=== PATIENT | female | born 2005 | race African-American/Black ===

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

== ENCOUNTER 2023-03-12 13:32 | Outpatient (CLI) | payer OTHER, SELFPAY ==
[2023-03-12 14:30] LABS: Basophils Absolute Auto 0.1 K/mm3 (0.0-0.1); Basophils Percent Auto 0.7 % (0.2-1.2); Eosinophils Absolute Auto 0.2 K/mm3 (0-0.3); Hemoglobin 14.4 g/dL (12.0-15.0); Immature Granulocyte Absolute 0.05 K/mm3 (0.00-0.031); Immature Granulocyte Percent A 0.5 % (0-0.5); Lymphocytes Absolute Auto 2.71 K/mm3 (0.9-3.2); Lymphocytes Percent Auto 27.9 % (18.3-44.2); Mean Corpuscular HGB Conc 34.3 g/dl (32-36); Mean Corpuscular Hemoglobin 31.3 pg (26-34); Mean Corpuscular Volume 91.3 fl (80-100); Monocytes Absolute Auto 0.7 K/mm3 (0.1-0.6); Monocytes Percent Auto 7.1 % (2.6-8.5); Neutrophils Percent Auto 61.8 % (45.5-73.1); Platelet Count Result 311 k/mm3 (150-375); Red Cell Distribution Width 12.6 % (11.5-14.5); White Blood Count 9.7 K/mm3 (4.5-10.0)
[2023-03-12 14:33] LABS: Rheumatoid Factor < 12.0 IU/ML (<12)
[2023-03-12 15:08] LABS: Erythrocyte Sedimentation Rate 9 mm/hr (0-20)
[2023-03-12 15:18] LABS: Iron 154 ug/dL (37-170)
[2023-03-12 15:29] LABS: Percent Iron Saturation 42 % (20-50)
[2023-03-12 15:43] LABS: Folic Acid 5.4 ng/mL (2.76->20)
[2023-03-12 15:47] LABS: Vitamin D 25 Hydroxy 40.8 ng/mL
[2023-03-12 16:20] LABS: Alanine Aminotransferase 25 U/L (6-35); Albumin Level 4.9 g/dL (3.7-5.6); Alkaline Phosphatase 67 U/L (45-116); Anion Gap 12 mmol/L (8-16); Aspartate Amino Transferase 26 U/L (14-36); Blood Urea Nitrogen 12 mg/dL (8-21); Calcium 9.4 mg/dL (8.9-10.7); Carbon Dioxide 22 mmol/L (22-30); Chloride 106 mmol/L (98-107); Estimated Glomerular Filt Rate > 60; Glucose 95 mg/dL (65-110); Potassium 4.2 mmol/L (3.4-5.0); Sodium 140 mmol/L (134-143)
== END 2023-03-12 13:33 | disposition home or self-care (01) ==
PROVIDERS: PCP Pediatrics Pediatric Rheumatology
DX: E55.9 Vitamin D deficiency, unspecified (principal); R53.83 Other fatigue; M25.50 Pain in unspecified joint
CPT/HCPCS: 36415; 80053; 82306; 82607; 82746; 83540; 83550; 84443; 85025; 85652; 86038; 86430

== ENCOUNTER 2023-10-06 11:27 | Outpatient (CLI) | payer OTHER, SELFPAY ==
[2023-10-06 12:28] LABS: Basophils Absolute Auto 0.1 K/mm3 (0.0-0.1); Basophils Percent Auto 0.8 % (0.2-1.2); Eosinophils Absolute Auto 0.4 K/mm3 (0-0.3); Eosinophils Percent Auto 4.5 % (0-4.4); Hematocrit 40.4 % (37.0-47.0); Hemoglobin 13.7 g/dL (12.0-15.0); Immature Granulocyte Absolute 0.03 K/mm3 (0.00-0.031); Immature Granulocyte Percent A 0.3 % (0-0.5); Lymphocytes Absolute Auto 2.79 K/mm3 (0.9-3.2); Mean Corpuscular HGB Conc 33.9 g/dl (32-36); Mean Corpuscular Hemoglobin 31.1 pg (26-34); Mean Corpuscular Volume 91.8 fl (80-100); Monocytes Absolute Auto 0.7 K/mm3 (0.1-0.6); Monocytes Percent Auto 7.4 % (2.6-8.5); Neutrophils Absolute Auto 4.8 K/mm3 (1.3-6.7); Platelet Count Result 310 k/mm3 (150-375); Red Cell Distribution Width 12.8 % (11.5-14.5); White Blood Count 8.7 K/mm3 (4.5-10.0)
[2023-10-06 12:38] LABS: Alanine Aminotransferase 27 U/L (6-35); Albumin Level 4.8 g/dL (3.7-5.6); Alkaline Phosphatase 68 U/L (45-116); Anion Gap 6 mmol/L (8-16); Aspartate Amino Transferase 25 U/L (14-36); Bilirubin,Total 0.9 mg/dL (0.2-1.3); Blood Urea Nitrogen 20 mg/dL (8-21); Calcium 9.5 mg/dL (8.9-10.7); Carbon Dioxide 26 mmol/L (22-30); Chloride 106 mmol/L (98-107); Estimated Glomerular Filt Rate > 60; Glucose 97 mg/dL (65-110); Sodium 138 mmol/L (134-143)
[2023-10-06 12:39] LABS: Partial Thromboplastin Time 30.6 SECONDS (22.3-36.8)
== END 2023-10-06 11:28 | disposition home or self-care (01) ==
PROVIDERS: PCP Pediatrics Pediatric Rheumatology
DX: R04.0 Epistaxis (principal)
CPT/HCPCS: 36415; 80053; 85025; 85730

== ENCOUNTER 2025-01-31 15:48 | Emergency (ER) | payer OTHER, SELFPAY ==
--- NOTE | 2025-01-31 15:52 | ED_ITS ---
HPI - Ear Problem General Chief complaint: Ear Stated complaint: ringing in right ear Time Seen by Provider: 01/31/25 16:01 Source: patient and RN notes reviewed Mode of arrival: ambulatory Limitations: no limitations History of Present Illness HPI Narrative: 19-year-old female presents concern for ringing in the right ear. Reports it has been intermittent, sometimes will last an hour time. Reports it is curren tly not ringing. Reports it was rainy earlier today and she took Flonase and an antihistamine. She denies fever, drainage from the ear. Reports mild cold symptoms MD Complaint: ear pain Related Data Home Medications ?Medication ?Instructions ?Recorded ?Confirmed ?Last Taken ?Type medroxyprogesterone 150 mg/mL mg IM 01/31/25 Unknown History intramuscular syringe Allergies Allergy/AdvReac Type Severity Reaction Status Date / Time No Known Allergies Allergy Verified 01/31/25 16:01 Review of Systems Review of Systems: CONSTITUTIONAL: Denies malaise, chills, sweats, or fever. EYES: Denies visual changes, redness, or discharge. ENT: Reports mild rhinorrhea, congestion. Denies ear pain, sinus pain, and sore throat. Reports ringing in the right ear CARDIOVASCULAR: Denies chest pain, palpitations, or edema. RESPIRATORY: Denies cough. Denies dyspnea. GASTROINTESTINAL: Denies abdominal pain, nausea, vomiting, diarrhea SKIN: Denies rash or itching. MUSCULOSKELETAL: Denies myalgia. NEUROLOGIC: Denies headache. All systems reviewed & are unremarkable except as noted in HPI and below PMFSH Comments At time of signature, agree with nursing past medical, surgical, social and family history. There is no relevant family history pertinent to the presenting complaint Exam Narrative: GENERAL: Well-appearing, well-nourished, and in no acute distress. HEAD: Normocephalic EYES: PERRLA, conjunctivae clear ENT: Nares clear. Mucous membranes moist. TM pearly hendrix with sharp light reflex on the left, not visible on the right not visible on the right due to excess cerumen; no tragal tenderness. Oropharynx not erythematous without lesions. Tonsils not enlarged and without exudate, no drooling, no hoarseness, no trismus, uvula midline. NECK: Supple. No lymphadenopathy CHEST: Clear to auscultation, breath sounds equal. No wheezing, rhonchi, rales, or stridor. No respiratory distress, speaks in full sentences. HEART: Regular rate and rhythm. No murmur heard. SKIN: Warm, dry, no rash. NEURO: Alert and oriented x3. PSYCH: Normal mood and affect Course Course Emergency Course: Patient is aware of diagnosis, understands and agrees to treatment plan. Anticipatory guidance given. Patient agrees to follow-up as directed and is aware of reasons to seek care at the emergency department. Portions of this record may have been created with voice recognition software Level of Care: Express Care Visit Vital Signs Vital signs: Reviewed. Procedures Ear Wax Removal Right Ear: Ear Wax Removal Date: 01/31/25 Ear Wax Removal Time: 16:11 Cerumenolytic Used: other (My strep proximal) Results: Re-examined: cerumen removed completely TM Examination: TM(s) intact, normal appearance Ear Canal Exam: atraumatic Patient Tolerated Procedure: well Technique: ear canal irrigated and ear canal curetted Medical Decision Making MDM Narrative Medical decision making narrative: I evaluated this in the [facility] care. History is obtained from patient who is an independent historian and physical exam was performed.? Available medical records were reviewed. ? Exam findings and relevant testing show no acute concerns or changes; patient is non-toxic appearing and is in no distress. Differential diagnosis considered: Jackson virus, strep pharyngitis, allergic rhinitis, upper respiratory tract infection, sinusitis, rhinosinusitis, nasopharyngitis. viral pharyngitis, otitis media, otitis externa, otitis effusion, cerumen impaction, foreign body. Exam findings show no acute concerns or changes; patient is non-toxic appearing and is in no distress. Patient is appropriate for outpatient treatment and follow-up. ? Differential diagnosis and treatment plan were discussed with the patient. Patient agrees with discussion and after shared medical decision making agrees with plan of care. All questions were answered to the patient's satisfaction. Patient is appropriate for outpatient treatment and follow-up. Critical Care Time Critical Care Time Critical Care Time: No Discharge Plan Discharge Clinical Impression: Cerumen impaction Qualifiers: Laterality: right Qualified Code(s): H61.21 - Impacted cerumen, right ear Patient Disposition: Home Condition: Stable Additional Instructions: Ear wax impaction is when ear wax builds up enough to cause symptoms. Normally, ear wax helps to protect the insides of the ears and prevents injury or infection. But having too much ear wax can cause symptoms such as pain and trouble hearing. The medical term for ear wax is cerumen. The insides of the ears do not usually need to be cleaned. Sticking anything into the ears can push the wax in deeper and cause impaction. How is ear wax impaction treated? There are several treatments to remove impacted ear wax. Treatment is usually only needed if the impaction is causing bothersome symptoms. Treatment is not recommended for removing ear wax in people who have no symptoms, even if their ears are impacted. There are several different ways to remove ear wax: ?Ear drops - Special ear drops can soften ear wax and help it to drain out. Ear drops are not usually safe for people with an ear infection or damage to the eardrum. ?Rinsing - In some cases, a doctor or nurse can remove impacted ear wax by squirting water (or a special liquid) into the ear to rinse it out. ?Special tools - A doctor or nurse might use a special tool to remove ear wax. There are different types of tools that can do this safely. These include small sticks, hooks, and spoons. There are also tools that use suction to pull the wax out. If you have recurrent cerumen impaction and no significant ear disease, you can use hydrogen peroxide to soften the wax so it comes out on its own. Do not put any tools on q-tips into your ears. Please use any drops that may have been prescribed to you. Follow up with your doctor if you have any new symptoms or concerns. Patient Language: Italian Follow-up/Referrals: UNKNOWN,DOCTOR [Non-Staff] - Time of Disposition: 16:37
[2025-01-31 15:58] VITALS: BP 149/73; PULSE 114; RESP 16; TEMP 36.4; O2SAT 98
== END 2025-01-31 16:41 | disposition home or self-care (01) ==
PROVIDERS: Emergency Provider Nurse Practitioner
DX: H61.21 Impacted cerumen, right ear (principal)
CPT/HCPCS: 69210; 99212; G0463

== ENCOUNTER 2025-02-01 10:21 | Emergency (ER) | payer OTHER, SELFPAY ==
[2025-02-01 10:25] VITALS: BP 150/70; PULSE 108; RESP 12; TEMP 36.6
--- NOTE | 2025-02-01 10:25 | ED.EAR ---
HPI - Ear Problem General Chief complaint: Ear Stated complaint: right ear ringing Time Seen by Provider: 02/01/25 10:31 Source: patient, RN notes reviewed and old records reviewed Mode of arrival: ambulatory Limitations: no limitations History of Present Illness HPI Narrative: 19-year-old female presents to the [facility] with complaints of ringing in her ear. Patient reports has been going on 3 days. Was seen yesterday and had had wax cleaned out of her ears. Patient states that she had no ringing for couple of hours after she left. States she had some pain last night. Ringing has been intermittent. States that she has taken 2 doses of Zyrtec and last 3 days. Denies any pain currently. Denies any other symptoms. Related Data Home Medications ?Medication ?Instructions ?Recorded ?Confirmed ?Last Taken ?Type medroxyprogesterone 150 mg/mL mg IM 01/31/25 Unknown History intramuscular syringe Allergies Allergy/AdvReac Type Severity Reaction Status Date / Time No Known Allergies Allergy Verified 02/01/25 10:23 Review of Systems Review of Systems: All systems reviewed & are unremarkable except as noted in HPI and below Constitutional: Constitutional: Reports no additional constitutional complaints ENT: Reports as per HPI Cardiovascular: Cardiovascular: Reports no additional cardiovascular complaints, Denies chest pain and Denies dyspnea Respiratory: Respiratory: Reports no additional respiratory complaints, Denies chest congestion, Denies cough and Denies dyspnea Musculoskeletal: Musculoskeletal: Reports no additional musculoskeletal complaints Integumentary/Breasts: Skin/Breast: Reports system reviewed and no additional complaints, except as docu PMFSH Comments At the time of my signature, I reviewed and agree with the nursing past medical, surgical, social, and family history. There is no relevant family history pertinent to the patient complaint. Exam Const: General: cooperative, healthy appearing, comfortable, no acute distress, well developed, alert and well nourished Nutritional Appearance: well nourished Orientation/consciousness: patient oriented x3 Limitations: no limitations HENMT: Head: normal to inspection Ears: hearing grossly normal bilaterally, external ears normal, EAC's normal, mastoids normal, no periauricular adenopathy and TM abnormal with fluid behind the TM bilateral; not bulging, not with effusion, not erythematous and with no loss of landmarks Mouth: Yes Normal oral and palatal mucosa present, Yes lip normal, Yes tongue normal and Yes moist mucous membranes Throat: posterior oropharynx normal, tonsils normal, uvula midline and no uvular edema Eyes: General: appearance normal, both eyes and all related structures Alignment and Position: alignment normal Neck: Neck: normal visual inspection, full ROM, no lymphadenopathy and no meningeal signs Chest: Chest palpation & inspection: normal inspection of the chest Resp: Effort & Inspection: normal respiratory effort and able to speak in complete sentences Auscultation: clear to auscultation bilaterally, no crackles, no rales, no rhonchi and no wheezes Cardio: Rate: regular rate Skin: General skin exam: normal color and no rashes or lesions noted Neuro: General: patient oriented x3, gait normal, moves all extremities and no meningeal signs Cognition (Neuro): normal cognition Speech: normal speech Gait exam (Neuro): Normal gait present Extrem: General: normal to inspection, full ROM, capillary refill normal and normal gait Psych: Appearance: grossly normal and well kempt Mental Status: mental status grossly normal Speech and movement: Normal speech and movement present and Clear speech present Affect: normal affect Attitude: cooperative Course Course Level of Care: Express Care Visit Vital Signs Vital signs: Vital Signs Temperature 97.8 F 02/01/25 10:25 Pulse Rate 108 H 02/01/25 10:25 Respiratory Rate 12 02/01/25 10:25 Blood Pressure 150/70 H 02/01/25 10:25 Temperature 97.8 F 02/01/25 10:25 Pulse Rate 108 H 02/01/25 10:25 Respiratory Rate 12 02/01/25 10:25 Blood Pressure 150/70 H 02/01/25 10:25 Reviewed Medical Decision Making MDM Narrative Medical decision making narrative: Patient sitting comfortably in exam room. Nontoxic, vitals stable. Patient in no acute distress Patient returns to the Urgent Care with intermittent ringing in her right ear. No neurologic deficits noted. No abnormality to the TM. No cerumen noted to the ear canal Patient appropriate for outpatient treatment with close follow-up Discharge instructions reviewed with patient, as well as provided in writing per nursing staff. The instructions also include specific and strict return/GO TO THE ER as well as f/u information. All questions have been answered, and the patient deny any further questions with discharge and discharge plan. Some parts of this dictation were generated by voice recognition software and may contain typographical and/or grammatical inaccuracies. Differential Diagnosis Differential Diagnosis: Tinnitus, otitis media, otitis externa, serous otitis. Medical Records Medical records reviewed: Yes I reviewed the external patient's medical records. Vital Signs Vital Signs: Vital Signs Temperature 97.8 F 02/01/25 10:25 Pulse Rate 108 H 02/01/25 10:25 Respiratory Rate 12 02/01/25 10:25 Blood Pressure 150/70 H 02/01/25 10:25 Temperature 97.8 F 02/01/25 10:25 Pulse Rate 108 H 02/01/25 10:25 Respiratory Rate 12 02/01/25 10:25 Blood Pressure 150/70 H 02/01/25 10:25 Reviewed Lab Data Lab results reviewed: Yes I reviewed the patient's lab results. Labs: Reviewed Critical Care Time Critical Care Time Critical Care Time: No Discharge Plan Discharge Clinical Impression: Tinnitus Patient Disposition: Home Condition: Stable Instructions: Antibiotic Form, Tinnitus (ED) Additional Instructions: Use Flonase twice a day for 5 days. Use Zyrtec every day. Follow-up with ENT Follow-up with primary care provider Patient Language: Ghanaian Prescriptions: No Action medroxyprogesterone 150 mg/mL syringe IM Follow-up/Referrals: PHYSICIAN,DIELECTRIC TESTING MACHINE OPERATOR [Primary Care Provider] - Time of Disposition: 10:39
== END 2025-02-01 10:41 | disposition home or self-care (01) ==
PROVIDERS: Emergency Provider Nurse Practitioner
DX: H93.11 Tinnitus, right ear (principal)
CPT/HCPCS: 99211; G0463

== ENCOUNTER 2025-02-03 09:32 | Outpatient (CLI) | payer OTHER, SELFPAY ==
[2025-02-03 10:13] LABS: Basophils Absolute Auto 0.1 K/mm3 (0.0-0.1); Basophils Percent Auto 0.9 % (0.2-1.2); Eosinophils Absolute Auto 0.3 K/mm3 (0-0.3); Eosinophils Percent Auto 2.5 % (0-4.4); Hematocrit 42.5 % (37.0-47.0); Hemoglobin 14.2 g/dL (12.0-15.0); Immature Granulocyte Absolute 0.05 K/mm3 (0.00-0.031); Immature Granulocyte Percent A 0.5 % (0-0.5); Lymphocytes Absolute Auto 3.34 K/mm3 (0.9-3.2); Lymphocytes Percent Auto 30.6 % (18.3-44.2); Mean Corpuscular HGB Conc 33.4 g/dl (32-36); Mean Corpuscular Hemoglobin 30.1 pg (26-34); Mean Corpuscular Volume 90.2 fl (80-100); Mean Platelet Volume 9.5 fl (7.4-10.4); Monocytes Absolute Auto 0.8 K/mm3 (0.1-0.6); Monocytes Percent Auto 7.6 % (2.6-8.5); Neutrophils Absolute Auto 6.3 K/mm3 (1.3-6.7); Neutrophils Percent Auto 57.9 % (45.5-73.1); Platelet Count Result 358 k/mm3 (150-375); Red Blood Count 4.71 M/mm3 (4.2-5.4); Red Cell Distribution Width 13.2 % (11.5-14.5); White Blood Count 10.9 K/mm3 (4.5-10.0)
[2025-02-03 10:25] LABS: Alanine Aminotransferase 25 U/L (6-35); Albumin Level 4.6 g/dL (3.5-5.1); Alkaline Phosphatase 68 U/L (38-126); Anion Gap 9 mmol/L (4-12); Aspartate Amino Transferase 29 U/L (14-36); Bilirubin,Total 0.5 mg/dL (0.2-1.3); Blood Urea Nitrogen 13 mg/dL (7-17); Calcium 9.6 mg/dL (8.4-10.2); Carbon Dioxide 24 mmol/L (22-30); Chloride 105 mmol/L (98-107); Estimated Glomerular Filt Rate > 60; Glucose 105 mg/dL (65-110); Potassium 4.3 mmol/L (3.4-5.0); Sodium 138 mmol/L (137-145); Total Protein 7.9 g/dL (6.3-8.2)
[2025-02-03 10:30] LABS: Iron 86 ug/dL (37-170)
--- OUTSIDE RECORDS SUMMARY | 2025-02-03 10:31 | XMS_ITS | Patient Health Record ---
Author Organization [facility] [employer] [facility] Address [address] [place] [address] Care Team Providers [employer] Name Role Phone Harish Cooley Unavailable [phone] Allergies No Known Allergies Reason For Referral No Information Medications Medication SIG (Take, Route, Frequency, Duration) Notes Start Date End Date Status Ergocalciferol 1.25 MG (5000 0 UT) Oral 01/02/2024 Active medroxyPROGESTERone Acetate 150 MG/ML Intramuscular 01/02/2024 Active buPROPion HCl ER (XL) 150 MG 1 tablet in the morning Orally Once a day for 30 day(s) 02/02/2025 Active Multivitamin Adults Oral 01/02/2024 Active Social History Tobacco Use: Social History Observation Description Date Details (start date - stop date) Never Smoker NA - NA Sex Assigned At : Social History Observation Description Sex Assigned At Female Tobacco Control (Standard) Question Answer Notes Tobacco use: Nonsmoker Problems Problem Type SNOMED Code ICD Code Onset Dates Problem Status W/U Status Risk Notes Problem Moderate recurrent major depression (10598814) Major depressive disorder, recurrent, moderate (F33.1) Active confirmed Problem Generalized anxiety disorder (04583719) Generalized anxiety disorder (F41.1) 4 Active confirmed Problem 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 Active confirmed Problem Panic disorder (547348848) Panic disorder [episodic paroxysmal anxiety] without agoraphobia (F41.0) 4 Active confirmed Vital Signs Heart Rate 102 /min 02/02/2025 Height-cm 162.56 cm 02/02/2025 Blood pressure diastolic 80 mm Hg 02/02/2025 Weight-kg 107.05 kg 02/02/2025 Height 64.00 in 02/02/2025 Blood pressure systolic 120 mm Hg 02/02/2025 Weight 236 lbs 02/02/2025 BMI 40.5 kg/m2 02/02/2025 Encounters Encounter Location Date Provider Diagnosis [address] [address] 02/02/2025 Harish Cooley Encounter for screen ing for depression Z13.31 ; Encounter for screening for cardiovascular disorders Z13.6 ; Insomnia due to other mental disorder F51.05 ; Panic disorder [episodic paroxysmal anxiety] without agoraphobia F41.0 ; Generalized anxiety disorder F41.1 ; Other fatigue R53.83 and Major depressive disorder, recurrent, moderate F33.[address] [address] 03/21/2024 Harish Cooley Insomnia due to othe r mental disorder F51.05 ; Panic disorder [episodic paroxysmal anxiety] without agoraphobia F41.0 ; Generalized anxiety disorder F41.1 and Other fatigue R53.[address] [address] 10/27/2024 Harish Cooley Encounter for screen ing for depression Z13.31 ; Encounter for screening for cardiovascular disorders Z13.6 ; Insomnia due to other mental disorder F51.05 ; Panic disorder [episodic paroxysmal anxiety] without agoraphobia F41.0 ; Generalized anxiety disorder F41.1 and Other fatigue R53.[address] [address] 03/03/2024 Harish Cooley [address] [address] 09/02/2024 Harish Cooley [address] [address] 10/30/2024 Harish Cooley Assessments Encounter Date Diagnosis (ICD Code) Assessment Notes Treatment Notes Treatment Clinical Notes Section Notes 03/21/2024 Insomnia due to other mental disorder (ICD-10 - F51.05) trazodone 50mg tablet- 0.5 to 1 tablet at bedtime prn 1. Anxiety - Patient reports significant improvement in anxiety symptoms since starting Sertraline 50 mg daily. - No reported side effects from Sertraline. Plan: - Continue Sertraline 50 mg daily. Monitor for any changes in anxiety symptoms or side effects. 2. Insomnia - Patient reports not needing Trazodone 50 mg for insomnia and has been sleeping regularly throughout the summer. Plan: - Continue to have Trazodone 50 mg available as needed for insomnia. Monitor sleep patterns and adjust treatment if necessary. 3. Post-operative care (wisdom teeth extraction) - Patient recently had all four wisdom teeth extracted, with three of them being impacted. Plan: - Encourage proper oral hygiene and follow post-operative care instructions provided by the oral surgeon. Monitor for any signs of infection or complications. 4. Follow-up - Plan: Schedule a follow-up appointment in approximately four months to assess anxiety levels and overall well-being after returning to school. - Refill Sertraline 50 mg prescription and send to [facility] in [place] as requested by the patient. 10/27/2024 Encounter for screening for depression (ICD-10 - Z13.31) 02/02/2025 Encounter for screening for cardiovascular disorders (ICD-10 - Z13.6) 02/02/2025 Encounter for screening for depression (ICD-10 - Z13.31) 10/27/2024 Encounter for screening for cardiovascular disorders (ICD-10 - Z13.6) 02/02/2025 Insomnia due to other mental disorder (ICD-10 - F51.05) 03/21/2024 Panic disorder [episodic paroxysmal anxiety] without agoraphobia (ICD-10 - F41.0) 1. Anxiety - Patient reports significant improvement in anxiety symptoms since starting Sertraline 50 mg daily. - No reported side effects from Sertraline. Plan: - Continue Sertraline 50 mg daily. Monitor for any changes in anxiety symptoms or side effects. 2. Insomnia - Patient reports not needing Trazodone 50 mg for insomnia and has been sleeping regularly throughout the summer. Plan: - Continue to have Trazodone 50 mg available as needed for insomnia. Monitor sleep patterns and adjust treatment if necessary. 3. Post-operative care (wisdom teeth extraction) - Patient recently had all four wisdom teeth extracted, with three of them being impacted. Plan: - Encourage proper oral hygiene and follow post-operative care instructions provided by the oral surgeon. Monitor for any signs of infection or complications. 4. Follow-up - Plan: Schedule a follow-up appointment in approximately four months to assess anxiety levels and overall well-being after returning to school. - Refill Sertraline 50 mg prescription and send to [facility] in [place] as requested by the patient. 10/27/2024 Insomnia due to other mental disorder (ICD-10 - F51.05) 02/02/2025 Panic disorder [episodic paroxysmal anxiety] without agoraphobia (ICD-10 - F41.0) 03/21/2024 Generalized anxiety disorder (ICD-10 - F41.1) 1. Anxiety - Patient reports significant improvement in anxiety symptoms since starting Sertraline 50 mg daily. - No reported side effects from Sertraline. Plan: - Continue Sertraline 50 mg daily. Monitor for any changes in anxiety symptoms or side effects. 2. Insomnia - Patient reports not needing Trazodone 50 mg for insomnia and has been sleeping regularly throughout the summer. Plan: - Continue to have Trazodone 50 mg available as needed for insomnia. Monitor sleep patterns and adjust treatment if necessary. 3. Post-operative care (wisdom teeth extraction) - Patient recently had all four wisdom teeth extracted, with three of them being impacted. Plan: - Encourage proper oral hygiene and follow post-operative care instructions provided by the oral surgeon. Monitor for any signs of infection or complications. 4. Follow-up - Plan: Schedule a follow-up appointment in approximately four months to assess anxiety levels and overall well-being after returning to school. - Refill Sertraline 50 mg prescription and send to [facility] in [place] as requested by the patient. 02/02/2025 Generalized anxiety disorder (ICD-10 - F41.1) 10/27/2024 Panic disorder [episodic paroxysmal anxiety] without agoraphobia (ICD-10 - F41.0) 03/21/2024 Other fatigue (ICD-10 - R53.83) 1. Anxiety - Patient reports significant improvement in anxiety symptoms since starting Sertraline 50 mg daily. - No reported side effects from Sertraline. Plan: - Continue Sertraline 50 mg daily. Monitor for any changes in anxiety symptoms or side effects. 2. Insomnia - Patient reports not needing Trazodone 50 mg for insomnia and has been sleeping regularly throughout the summer. Plan: - Continue to have Trazodone 50 mg available as needed for insomnia. Monitor sleep patterns and adjust treatment if necessary. 3. Post-operative care (wisdom teeth extraction) - Patient recently had all four wisdom teeth extracted, with three of them being impacted. Plan: - Encourage proper oral hygiene and follow post-operative care instructions provided by the oral surgeon. Monitor for any signs of infection or complications. 4. Follow-up - Plan: Schedule a follow-up appointment in approximately four months to assess anxiety levels and overall well-being after returning to school. - Refill Sertraline 50 mg prescription and send to [facility] in [place] as requested by the patient. 10/27/2024 Generalized anxiety disorder (ICD-10 - F41.1) 02/02/2025 Other fatigue (ICD-10 - R53.83) 02/02/2025 Major depressive disorder, recurrent, moderate (ICD-10 - F33.1) 10/27/2024 Other fatigue (ICD-10 - R53.83) 10/27/2024 Other 1. Generalized Anxiety Disorder: - Patient reports her anxiety is pretty bad and has been inconsistent with taking sertraline 50 mg daily, sometimes taking it 3-5 days per week. - Patient expresses a desire to discontinue medication completely, citing difficulty with consistent adherence and a preference for holistic methods. - Patient's motivation for various activities, including medical appointments, is reported as low. - Sleep, previously an issue, has improved to the point where the patient reports sleeping too much now. Plan: - Discontinue sertraline 50 mg daily - Discontinue trazodone as sleep has improved - Encourage patient to discuss holistic anxiety management techniques with her therapist, including mindfulness, cognitive restructuring, and breathing exercises - Advise against naturalistic supplements due to patient's difficulty with medication adherence - Recommend resuming regular therapy sessions 2. Follow-up: - Schedule a follow-up appointment in 2 months to reassess anxiety symptoms and effectiveness of holistic methods Plan Of Treatment Future Test Test Name Order Date IRON, TIBC AND FERRITIN PANEL (7791) TSH+FREE T4 (39308) 02/02/2025 COMPREHENSIVE METABOLIC PANEL (74410) CBC (H/H, RBC, INDICES, WBC, PLT) (1759) 02/02/2025 HEMOGLOBIN A1c (496) 02/02/2025 VITAMIN B12/FOLATE, SERUM PANEL (7065) 0 02/02/2025 T3, FREE (99808) 02/02/2025 Next Appt Details Provider Name:Harish lau, 03/02/2025 09:15:00 AM, [address], [facility] [address], [place], [address], Insurance Providers Payer Name Payer Address Payer Phone Subscriber Number Group Number Insured Name Patient Relationship to Insured Coverage Start Date Coverage End Date [facility] [address] [place] [address] [id number] LOREE BOURNE Self - patient is the insured [facility] [place] Medicaid Replacement - Hmo [address] [place] [address] [id number] LOREE BOURNE Self - patient is the insured Medical (General) History Medical History History ICD Code Problems: Fatigue Generalized anxiety disorder 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
--- OUTSIDE RECORDS SUMMARY | 2025-02-03 10:31 | XMS_ITS | Clinical Summary ---
Author Organization [facility] Address [address] [place] [address] Care Team Providers Care Bakery Manager Name Role Phone Dilshad Nassar MD Primary Care Provider [phone] Dilshad Nassar MD Unavailable [phone] Source Comments [facility],non-owned Affiliates and Associated Physician Practices is amultiple site organization consisting of ambulatory clinics and hospital sitesin [place], [place], [place] and [place]. This disclosure is being madepursuant to the Care Everywhere program and may not contain all information available regarding this patient. Last updated 18.[facility] Allergies Active Allergy Reactions Criticality Noted Date Comments [place] Fruit Itching Medium 07/12/2020 C/o itchy throat Medications * This document contains information received from the source organization and may not represent a complete record from that organization. * Be aware that medications may not be up to date on this document. Alwaysverify current medications with the patient. ibuprofen (MOTRIN) 400 MG tablet Take 200 mg by mouth every 6 hours as needed for Pain Active cetirizine (ZYRTEC) 10 MG tablet Take 1 (one) tablet by mouth once daily Active medroxyPROGESTE Dontae Acetate (DEPO-PROVERA IM) Active naproxen (NAPROSYN) 500 MG tablet Take 1 (one) tablet by mouth 2 times daily 60 tablet 3 06/30/2021 Active ferrous sulfate 325 (65 FE) MG tablet Take 1 (one) tablet by mouth once daily 100 tablet 08/01/2021 Active ergocalciferol (Drisdol) 1.25 MG (99962 UT) capsule Take 1 (one) capsule by mouth every 14 days 6 capsule 1 08/16/2022 Active Active Problems Problem Noted Date Diagnosed Date Arthralgia 07/20/2020 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 Uses pads, and occasionally bleeds through, has missed school this year due to periods Labs: - CBC, Ferritin - Vitamin D - FSH, LH, Testosterone, DHEA Urine Hcg Depo-provera today Dysmenorrhea 07/12/2020 Assessment & Plan (05/29/2022 3:31 PM CDT): Loree Bourne is an 16 year old with a history of dysmenorrhea who presents to the adolescent clinic for follow up of her menorrhagia and for her next Depo injection. She has been doing well on Depo. She had 4 days of spotting in March associated with cramping, but not as bad as her cramps were before she started Depo. Plan: -Depo-Provera injection today. -Return to clinic in 12 weeks (~August 20) for next injection. Assessment & Plan (10/10/2021 5:32 PM HEEL TOP LIFT SPLITTER): Loree Bourne is a 15 yr old w/ hx of dysmenorrhea who presents to the adolescent clinic for follow up of her menorrhagia, and for a depo injection. She had intermittent for 2 days last month but the depo has still overall been controlling her painful periods and heavy bleeding. [facility] is significant for mother and grandmother with endometriosis and hx of clots so she will need to be on a progesterone only contraceptive option.She has been taking vitamin D 50k weekly dose and iron supplementation daily.Her weight today is up by 12 lbs, she does not seem too surprised as she says that she typically gains weight in the winter and is usually much more physically active in the summer. She denies sexual activity, but will test for STIs to be sure with hx of irregular spotting. Plan: - depo today - GC, chlamydia, tichomonas testing - return in 10 weeks around December 26 for next depo Assessment & Plan (12/06/2020 5:12 PM CDT): Loree Bourne is a 15 yr old w/ hx of dysmenorrhea who presents to the adolescent clinic for depo shot. She had prolonged bleeding for 2 weeks last month but the depo has still overall been controlling her painful periods and heavy bleeding. [facility] is significant for mother and grandmother with endometriosis and hx of clots so she will need to be on a progesterone only contraceptive option. Discussed other options if she is interested in the future including IUD and mini-pill. She has been taking vitamin D but has not been taking the 50k weekly dose. She denies sexual activity, but will test for STIs to be sure with hx of irregular bleeding. Plan: - depo today - GC, chlamydia testing - refilled vitamin D 50k Q7 days - return in 12 weeks around February 28 for next depo Assessment & Plan (07/12/2020 4:58 PM HEEL TOP LIFT SPLITTER): Pain with periods, lower back and pelvic. Has pain starting two weeks before period, pain is the worst on days 1-3. Uses ibuprofen 800 mg four times daily on period. - Start depo today - Plan to start Vit D and iron pending labs results - check CBC, ferritin, vitamin D Family history of gynecological problem 07/12/20 Assessment & Plan (07/12/2020 5:00 PM HEEL TOP LIFT SPLITTER): Mother, multiple aunts (both maternal and paternal sides), grandmother with heavy menstrual bleeding, dysmenorrhea, and hysterectomies. PCOS in mother. Mother with history of three blood clots (2 out of 3 on estrogen or after surgery, genetic work-up for mother did not reveal cause) - Factor V Leiden panel - Start on Depo today - Avoid estrogen; can consider low dose estrogen in the future pending lab results Immunizations Immunization Administration Dates Next Due Human Papilloma Virus Ninevalent Vaccine 017,07/11/2016,05/01/2015 Human Papilloma Virus Quadrivalent Vaccine 03/17 INFLUENZA VACCINE, QUADR. (F LUZONE; FLULAVAL; FLUARIX; AFLURIA QUADRIVALENT; 6MO+), 0.5 ML (IIV4) 06/12/2020,08/08/2018,07/11/2016 MENINGOCOCCAL ACWY (MCV4P) VAC IM 12/20/2020,,03/17/2014 TDAP (7yrs+) 05/01/2015 VARICELLA 03/17/2014 Family History Medical History Relation Name Comments Diabetes; unknown type Father Other - Tree Climber Maternal Grandmother Diabetes; unknown type Mother Other - Tree Climber Mother PCOS/ endometri osis/ hysterectomy. Blood clots on high dose estrogen Other - Psychiatric Mother bipolar Thyroid Disease Mother tumors and r emval Other - Tree Climber Other Aunts on both s ides with PCOS/ACCESS LEAD Relation Name Status Comments Father Maternal Grandmother Mother Other Social History Tobacco Use Types Packs/Day Years Used Date Smoking Tobacco: Never Smokeless Tobacco: Never Tobacco Cessation:Counseling Given: Not Answered Alcohol Use Standard Drinks/Week Comments Never 0 (1 standard drink = 0.6 oz pur e alcohol) AUDIT-C Answer Date Recorded Q1: How often do you have a drink containing alc ohol? Never 07/12/2020 Average Number of Drinks Not on file 020 Frequency of Binge Drinking Not on file 06/21 Comments No Sex and Gender Information Value Date Recorded Sex Assigned at Not on file Legal Sex Female 11:57 AM HEEL TOP LIFT SPLITTER Gender Identity Not on file Sexual Orientation Not on file Last Filed Vital Signs Vital Sign Reading Time Taken Comments Blood Pressure 130/58 08/16/2022 4:06 PM HEEL TOP LIFT SPLITTER Pulse 124 08/16/2022 4:06 PM HEEL TOP LIFT SPLITTER Temperature 36.2 C (97.2 F) 07/19/2020 2:50 PM HEEL TOP LIFT SPLITTER Respiratory Rate 20 06/06/2021 4:10 PM CDT Oxygen Saturation - - Inhaled Oxygen Concentration - - Weight 83.4 kg (183 lb 13.8 oz) 08/16/2022 4:06 PM HEEL TOP LIFT SPLITTER Height 164.5 cm (5' 4.76) 08/16/2022 4:06 PM CS T Body Mass Index 30.82 08/16/2022 4:06 PM HEEL TOP LIFT SPLITTER Plan of Treatment Health Maintenance Due Date Last Done Comments PAP SMEAR 2003 MENINGOCOCCAL (Group B) VACCINE SHARED DECISION-MAKING (1 of 2 - Standard) 2019 HEPATITIS C SCREENING 10/20/2021 CHLAMYDIA/GONORRHEA SCREENING 10/10/2022 10/10/2021, 02/28/2021, 12/06/2020, Additional history exists HEPATITIS B VACCINE (1 of 3 - 19+ 3-dose series) 10/24/2022 COVID-19 VACCINE (4 - season) 2024 08/17/2021, 12/23/2020, 12/02/2020 DEPRESSION SCREENING 08/20/2024 INFLUENZA VACCINE (Season Ended) 2025 08/17/2021, 06/12/2020, 08/08/2018, Additional history exists DTAP/TDAP/TD VACCINES (2 - Td or Tdap) 05/01/2025 05/01/2015 ZOSTER VACCINE (1 of 2) 10/24/2053 HPV VACCINE Completed 02/05/2017, 06/21, 05/01/2015, Additional history exists MENINGOCOCCAL GROUPS A/C/Y/W VACCINE Completed 12/20/2020, 03/13/2018, 03/17/2014 HIV SCREENING Completed 05/16/2021 HIB VACCINE Aged Out No longer eligi ble based on patient's age to complete this topic PNEUMOCOCCAL VACCINE Aged Out No long er eligible based on patient's age to complete this topic Procedures Procedure Name Priority Date/Time Associated Diagnosis Comments CHLAMYDIA + GC AMPLIFIED PROBE Routine 10/10/2021 5:02 PM HEEL TOP LIFT SPLITTER Menorrhagia with irregular cycle HIV-1 HIV-2 ANTIBODY + HIV P24 AG PANEL Routine 05/16/2021 3:58 PM CDT Routine screening for STI (sexually transmitted infection) from Last 3 Months or Most Recently Relevant to Health Maintenance Results * CHLAMYDIA + GC AMPLIFIED PROBE (STL) (10/10/2021 5:02 PM HEEL TOP LIFT SPLITTER) Chlamydia Amplified Probe Negative Negative 10/11/2021 11:55 PM HEEL TOP LIFT SPLITTER [facility] GC Amplified Probe Negative Negative 10/11/2021 11:55 PM HEEL TOP LIFT SPLITTER [facility] Microbiology URINE / Unknown Collection / Unknown 10/10/2021 5:02 PM HEEL TOP LIFT SPLITTER 10/10/2021 5:02 PM HEEL TOP LIFT SPLITTER Narrative [facility] - 10/11/2021 11:55 PM HEEL TOP LIFT SPLITTER Results based on detection/no detection of ribosomal RNA by amplified method. Marla Mayers MD LAB - MICROBIOLOGY ORDER ANN-MARIE Final Result Performing Organization Address City/[facility]/ZIP Co de Phone Number [facility] [address] [place] [address], [facility] [phone] * HIV-1 HIV-2 ANTIBODY + HIV P24 AG PANEL (05/16/2021 3:58 PM CDT) HIV Antigen/Antibod y 1 & 2 Non-reacti ve Non-react juan antonio 05/16/2021 6:14 PM CDT [facility] Comment:Neither HIV-1 p24 An tigen nor HIV-1/HIV-2 Antibodies are detected. Blood BLOOD SPECIMEN / Unknown Lab Venipuncture / Unknown 05/16/2021 3:58 PM CDT 05/16/2021 4:21 PM CDT Marla Mayers MD LAB - CHEMISTRY ORDERABL ES Final Result Performing Organization Address City/[facility]/ZIP Co de Phone Number [facility] [address] [place] [address], [place] [phone] from Last 3 Months or Most Recently Relevant to Health Maintenance Insurance [facility] Care Teams Bakery Manager Relationship Specialty Start Date End Date Dilshad Nassar MD [address] [place] [address] PCP - General 07/13/20 Dilshad Nassar MD [address] [place] [address] Family Medicine 07/13/20
--- OUTSIDE RECORDS SUMMARY | 2025-02-03 10:32 | XMS_ITS ---
Author Organization [facility] Address [address] [facility] [address] [place] [address] Care Team Providers Care Heel Top Lift Splitter Name Role Phone Cooley, Harish Unavailable [phone] REASON FOR VISIT r/s on 09/24/24 Social History Sex Assigned At : Social History Observation Description Sex Assigned At Female Encounters Encounter Location Date Provider Diagnosis [facility] [employer] [facility] [address] [facility] [address] [place] [address] 09/26/2024 Harish Cooley Plan Of Treatment Next Appt Details Provider Name:Harish lau, 03/02/2025 09:15:00 AM, [address], [facility] [address], [place], [address], Progress Notes * LOREE BOURNE RDOB:2005 (19 yo F)Acc No.[id number]:09/26/2024 Patient: Rachelle PRADIP LOREE Acuna Provider: SERENITY CARDENAS :2005 A ge:18 Y S ex:Female Date:09/26/2024 Address:[address] [place], [place] [id number] Subjective: * Chief Complaints: * 1 . R/s on 09/24/24. * Medical History: Objective: * Vitals: Assessment: Plan: * Treatment: * Billing Information: * Visit Code: * Procedure Codes: * Electronic signature of SERENITY Castillo on 02/03/2025 at 10:31 AM CDT Sign off status: Pending * Provider: SERENITY CARDENAS Date: 0 09/26/2024 Generated for Will Rubio/Tomasz on: 0 02/03/2025 10:31 AM CDT
--- OUTSIDE RECORDS SUMMARY | 2025-02-03 10:32 | XMS_ITS ---
Author Organization [facility] [employer] Address [address] [place] [address] Care Team Providers Care Hand Engraver Name Role Phone Harish Cooley Unavailable [phone] Allergies No Known Allergies REASON FOR VISIT Follow Up Medications Medication SIG (Take, Route, Frequency, Duration) [...] Risk Notes Problem Moderate recurrent major depression (50652011) Major depressive disorder, recurrent, moderate (F33.1) Active confirmed Vital Signs Blood pressure systolic 120 mm Hg 02/03/20 25 Blood pressure diastolic 80 mm Hg 025 Heart Rate 102 /min 02/02/2025 Height 64.00 in 02/02/2025 Weight 236 lbs 02/02/2025 BMI 40.5 kg/m2 02/02/2025 Height-cm 162.56 cm 02/02/2025 Weight-kg 107.05 kg 02/02/2025 Encounters Encounter Location Date Provider Diagnosis [facility] [employer] [facility] [address] [place] [address] 02/02/2025 Harish Cooley Encounter for screen ing for depression Z13.31 ; Encounter for screening for cardiovascular disorders Z13.6 ; Insomnia due to other mental disorder F51.05 ; Panic disorder [episodic paroxysmal anxiety] without agoraphobia F41.0 ; Generalized anxiety disorder F41.1 ; Other fatigue R53.83 and Major depressive disorder, recurrent, moderate F33.1 Assessments Encounter Date Diagnosis (ICD Code) Assessment Notes Treatment Notes Treatment Clinical Notes Section Notes 02/02/2025 Encounter for screening for depression (ICD-10 - Z13.31) 02/02/2025 Encounter for screening for cardiovascular disorders (ICD-10 - Z13.6) 02/02/2025 Insomnia due to other mental disorder (ICD-10 - F51.05) 02/02/2025 Panic disorder [episodic paroxysmal anxiety] without agoraphobia (ICD-10 - F41.0) 02/02/2025 Generalized anxiety disorder (ICD-10 - F41.1) 02/02/2025 Other fatigue (ICD-10 - R53.83) 02/02/2025 Major depressive disorder, recurrent, moderate (ICD-10 - F33.1) Plan Of Treatment Medication Medication Name Sig Start Date Stop Date Notes buPROPion HCl ER (XL) 150 MG 1 tablet in the morning Orally Once a day for 30 day(s) 02/02/2025 Future Test Test Name Order Date IRON, TIBC AND FERRITIN PANEL (5616) TSH+FREE T4 (70825) 02/02/2025 COMPREHENSIVE METABOLIC PANEL (73227) CBC (H/H, RBC, INDICES, WBC, PLT) (1759) 02/02/2025 HEMOGLOBIN A1c (496) 02/02/2025 VITAMIN B12/FOLATE, SERUM PANEL (7065) 0 02/02/2025 T3, FREE (94690) 02/02/2025 Next Appt Details Follow Up: 4 Weeks, Reason: f/u depression Provider Name:Harish lau, 03/02/2025 09:15:00 AM, [address], [address], [place], [address], Progress Notes * LOREE BOURNE RDOB:2005 (19 yo F)Acc No.[id number]:02/02/2025 Patient: LOREE HOWARD Provider: SERENITY CARDENAS :2005 A ge:19 Y S ex:Female Date:02/02/2025 Address:[address] [place] [address] [id number] Subjective: * Chief Complaints: * 1 . Follow Up. * HPI: D epression Screening: KIRBY-7 (2018 Edition) F eeling nervous, anxious, or on edge N early every day N ot being able to stop or control worrying?Nearly every day W orrying too much about different things N early every day T rouble relaxing N ot at all B eing so restless that it is hard to sit still N ot at all B ecoming easily annoyed or irritable M ore than half the days F eeling afraid as if something awful might happen M ore than half the days T otal KIRBY-7 Score 1 3 I f you checked any problems, how difficult have they made it for you to do your work, take care of things at home, or get along with other people? S omewhat difficult I nterpretation of Total ( 10 to 14) Moderate [place]-Suicide Severity Rating Scale: Suicide Risk (CSRS-screener) i n the past one month Have you wished you were or wished you could go to sleep and not wake up? N o i n the past one month Have you actually had any thoughts of killing yourself? N o H ave you ever done anything, started to do anything, or prepared to do anything to end your life? N o D epression screening: PHQ-9 L ittle interest or pleasure in doing things?Several days F eeling down, depressed, or hopeless S everal days T rouble falling or staying asleep, or sleeping too much S everal days F eeling tired or having little energy S everal days P oor appetite or overeating S everal days F eeling bad about yourself or that you are a failure, or have let yourself or your family down S ever T rouble concentrating on things, such as reading the newspaper or watching television M oving or speaking so slowly that other people could have noticed; or the opposite, being so fidgety or restless that you have been moving around a lot more than usual N ot at all T houghts that you would be better off or of hurting yourself in some way N ot at all T otal Score 7 I nterpretation M ild Depression Intervention D epression Screening Findings P ositve F ollow-Up for Depression M ental health care management, Psychiatric follow-up S uicide Risk Assessment Performed _ _ date H istory of Presenting Problem: BP normalshe is not consistent with taking Sertraline, takes it 3-5 days a week. Would like to stop Sertraline and try to manage anxiety holistically. Not taking Trazodone, states she sleeps fine, probably too much. Anxiety p resent. Depression A ssociated Symptoms: low motivation, fatigue, oversleeping. Sleep disturbance s table. Psychotherapy h as therapist. Depression screening done. P ast Psychiatric Medications: trazodone, sertraline. * ROS: P erformance Met: N ormal blood pressure reading documented, follow-up not required ( G8783). * Medical History: P roblems: Fatigue, Generalized anxiety disorder, Insomnia disorder related to another mental disorder, Multiple joint pain, Panic disorder, Recurrent bleeding of nose, Vitamin D deficiency, ,. * Social History: T obacco Use: T obacco Control (Standard) T obacco use: N onsmoker M igrated Social History: M igrated Social History: Alcohol Intake: None 06/25/2023,Tobacco Years: Never smoker 03/01/2023. D rug/Alcohol: D o you smoke marijuana?: Denies. Do you drink alcohol?: No. * Medications: T aking Ergocalciferol 1.25 MG (18201 UT) Capsule Oral , Taking medroxyPROGESTERone Acetate 150 MG/ML Suspension Prefilled Syringe Intramuscular , Taking Multivitamin Adults Tablet Oral , Discontinued traZODone HCl 50 MG Tablet Oral , Discontinued Sertraline HCl 50 MG Tablet 1 tablet Oral Once a day , Medication List reviewed and reconciled with the patient * Allergies: N .K.D.A. Objective: * Vitals: B P:120/80mm Hg, HR:102/min, Wt:236lbs, Wt-k.05 kg, Ht: 64.00 in, Ht-cm: 162.56 cm, BMI:40.5Index, Body Surface Area: 2.2. * Examination: P sychiatry: Appearance: w ell-groomed, well-nourished, .... Affect / mood: a ppropriate, full range. Attention: g ood. Attitude: c ooperative. Suicidal ideation: n one. Memory status: n o impairment noted. Degree of awareness of surroundings: w ithin normal limits.? Delusions: n o. Hallucinations: n o. Insight: g ood. Intellectual functioning: n o impairment noted. Judgement: g ood. Orientation: a wake, alert and oriented x 3. Perceptual disorders: n o perceptual disorder noted. Psychomotor activity: w ithin normal range. Speech / language: a ppropriate pitch/modulation, clear and coherent, normal rate, volume, and articulation (RVR), proper grammar used. Thought content: a ppropriate. Thought process: i ntact. Assessment: * Assessment: 1. E ncounter for screening for depression - Z13.31 (Primary) 2 . E ncounter for screening for cardiovascular disorders - Z13.6 3 . I nsomnia due to other mental disorder - F51.05 4 . P anic disorder [episodic paroxysmal anxiety] without agoraphobia - F41.0 S pecify :Src Diagnosis Name: Panic disorder [episodic paroxysmal anxiety] 5 . G eneralized anxiety disorder - F41.1 6 . O ther fatigue - R53.83 7 . M ajor depressive disorder, recurrent, moderate - F33.1 ? Plan: * Treatment: 2. M ajor depressive disorder, recurrent, moderate Start buPROPion HCl ER (XL) Tablet Extended Release 24 Hour, 150 MG, 1 tablet in the morning, Orally, Once a day, 30 day(s), 30. * Procedure Codes: 9 6127 BEHAV ASSMT W/SCORE & DOCD/STAND INSTRUMENT, 1036F TOBACCO NON-USER, G6087 NORMAL BP READING DOC F/U NOT RQR, G8431 CLIN DEPRESSION SCREEN DOC, G8752 MOST RECENT SYSTOLIC BP < 140MM HG, G8754 MOST RECENT DIASTOLIC BP < 90MM HG * Preventive Medicine: Screenings: D epression screening Have you had a recent depression screening? Y es * Follow Up: 4 Weeks (Reason: f/u depression) * Billing Information: * Visit Code: 90928 OFFICE OUTPATIENT VISIT 25 MINUTES DETAILED HISTORY AND EXAM/MODERATE MEDICAL DECISION MAKING. * Procedure Codes: 83774 BEHAV ASSMT W/SCORE & DOCD/STAND INSTRUMENT. 1036F TOBACCO NON-USER. G8783 NORMAL BP READING DOC F/U NOT RQR. G8431 CLIN DEPRESSION SCREEN DOC. G8752 MOST RECENT SYSTOLIC BP < 140MM HG. G8754 MOST RECENT DIASTOLIC BP < 90MM HG. * Electronic signature of SERENITY Casitllo on 02/03/2025 at 10:31 AM CDT Sign off status: Pending * Provider: SERENITY CARDENAS Date: 0 02/02/2025 Generated for Will uribe/Helena/Tomasz on: 0 02/03/2025 10:31 AM CDT History and Physical Notes * HPI (History of Present Illness) Category Sub-Category Detail Notes Category Not es History of Presenting Problem Anxiety present Depression screening done Depression Associated Symptoms: low motivation, fatigue, oversleeping Sleep disturbance stable Psychotherapy has therapist Depression screening PHQ-9 Little inte rest or pleasure in doing things: Several days Feeling down, depressed, or hopeless: Se veral days Trouble falling or staying asleep, or sl eeping too much: Several days Feeling tired or having little energy: S everal days Poor appetite or overeating: Several day s Feeling bad about yourself o r that you are a failure, or have let yourself or your family down: Several days Trouble concentrating on thi ngs, such as reading the newspaper or watching television: Several days Moving or speaking so slowly that other people could have noticed; or the opposite, being so fidgety or restless that you have been moving around a lot more than usual: Not at all Thoughts that you would be b pavel off or of hurting yourself in some way: Not at all Total Score: 7 Interpretation: Mild Depression Intervention Depression Screening Findings: Hay estrada Follow-Up for Depression: Me ntal health care management, Psychiatric follow-up Suicide Risk Assessment Performed: __ da te Depression Screening KIRBY-7 (2018 Edition) Feelin g nervous, anxious, or on edge: Nearly every day Not being able to stop or control worryi ng: Nearly every day Worrying too much about different things : Nearly every day Trouble relaxing: Not at all Being so restless that it is hard to sit still: Not at all Becoming easily annoyed or irritable: Mo re than half the days Feeling afraid as if something awful nerissa ht happen: More than half the days Total KIRBY-7 Score: 13 If you checked any problems, how difficult have they made it for you to do your work, take care of things at home, or get along with other people?: Somewhat difficult Interpretation of Total: (10 to 14) Mode rate [place]-Suicide Severity Rating Scale Suicide Risk (CSRS-screener) in the past one month Have you wished you were or wished you could go to sleep and not wake up?: No in the past one month Have y ou actually had any thoughts of killing yourself?: No Have you ever done anything, started to do anything, or prepared to do anything to end your life?: No Past Psychiatric Medications trazodone, sertraline Examination Category Sub-Category Detail Notes Category Not es Psychiatry Appearance: well-groomed, well-nourished , ... Attitude: cooperative Psychomotor activity: within normal rang e Attention: good Degree of awareness of surroundings: wit hin normal limits Orientation: awake, alert and christopher ented x 3 Affect / mood: appropriate, full ra nge Speech / language: appropriate pitch/mo dulation, clear and coherent, normal rate, volume, and articulation (RVR), proper grammar used Insight: good Judgement: good Thought process: intact Thought content: appropriate Perceptual disorders: no perceptual diso rder noted Suicidal ideation: none Intellectual functioning: no impairment noted Memory status: no impairment noted Delusions: no Hallucinations: no
[2025-02-03 10:40] LABS: Percent Iron Saturation 21 % (20-50)
[2025-02-03 10:49] LABS: Free T4 Free Thyroxine 0.75 ng/dL (0.78-2.19)
[2025-02-03 11:30] LABS: Free T3 3.24 pg/mL (2.32-6.09)
[2025-02-03 11:31] LABS: Folic Acid 5.2 ng/mL (2.76->20)
== END 2025-02-03 09:33 | disposition home or self-care (01) ==
LOC: ANHLAB 09:36
PROVIDERS: Visit Provider Nurse Practitioner Family
DX: R53.83 Other fatigue (principal)
CPT/HCPCS: 36415; 80053; 82607; 82728; 82746; 83036; 83540; 83550; 84439; 84443; 84481; 85025

== ENCOUNTER 2025-02-06 07:29 | Outpatient (CLI) | payer OTHER, SELFPAY ==
--- OUTSIDE RECORDS SUMMARY | 2025-02-06 07:32 | XMS_ITS ---
Author Organization [facility] [employer] Address [address] [place] [address] Care Team Providers Care Metal Fabricator Name Role Phone Harish Cooley Unavailable [phone] Allergies No Known Allergies REASON FOR VISIT [...] Problem Status W/U Status Risk Notes Problem Major depressive disorder, recurrent, moderate (F33.1) Active confirmed Vital Signs Blood pressure systolic 120 mm Hg 02/03/20 25 Blood pressure diastolic 80 mm Hg 025 Heart Rate 102 /min 02/02/2025 Height 64.00 in 02/02/2025 Weight 236 lbs 02/02/2025 BMI 40.5 kg/m2 02/02/2025 Height-cm 162.56 cm 02/02/2025 Weight-kg 107.05 kg 02/02/2025 Encounters Encounter Location Date Provider Diagnosis [facility] [address] [place] [address] 02/02/2025 Harish Cooley Encounter for screen ing [...] TIBC AND FERRITIN PANEL (5616) TSH+FREE T4 (12846) 02/02/2025 COMPREHENSIVE METABOLIC PANEL (91609) CBC (H/H, RBC, INDICES, WBC, PLT) (1759) 02/02/2025 HEMOGLOBIN A1c (496) 02/02/2025 VITAMIN B12/FOLATE, SERUM PANEL (7065) 0 02/02/2025 T3, FREE (61027) 02/02/2025 Next Appt Details Follow Up: 4 Weeks, Reason: f/u depression Provider Name:Harish lau, 03/02/2025 09:15:00 AM, [address], [address], [place], [address], Progress Notes * LOREE BOURNE RDOB:2005 (19 yo F)Acc No.[id number]:02/02/2025 Patient: LOREE HOWARD Provider: SERENITY CARDENAS :2005 A ge:19 Y S ex:Female Date:02/02/2025 Address:[address] [place], [place] [id number] Subjective: * Chief Complaints: * 1 . [...] * Medications: T aking Ergocalciferol 1.25 MG (08438 UT) Capsule Oral , Taking medroxyPROGESTERone Acetate [...] W/SCORE & DOCD/STAND INSTRUMENT, 1036F TOBACCO NON-USER, G2870 NORMAL BP READING DOC F/U NOT RQR, G8431 CLIN DEPRESSION SCREEN DOC, G8752 MOST RECENT SYSTOLIC BP < 140MM HG, G8754 MOST RECENT DIASTOLIC BP < 90MM HG * Preventive Medicine: Screenings: D epression screening Have you had a recent depression screening? Y es * Follow Up: 4 Weeks (Reason: f/u depression) * Billing Information: * Visit Code: 34416 OFFICE OUTPATIENT VISIT 25 MINUTES DETAILED HISTORY AND EXAM/MODERATE MEDICAL DECISION MAKING. * Procedure Codes: 90798 BEHAV ASSMT W/SCORE & DOCD/STAND INSTRUMENT. 1036F TOBACCO NON-USER. G8783 NORMAL BP READING DOC F/U NOT RQR. G8431 CLIN DEPRESSION SCREEN DOC. G8752 MOST RECENT SYSTOLIC BP < 140MM HG. G8754 MOST RECENT DIASTOLIC BP < 90MM HG. * Electronic signature of SERENITY Castillo on 02/06/2025 at 07:32 AM CDT Sign off status: Pending * Provider: SERENITY CARDENAS Date: 0 02/02/2025 Generated for Will uribe/Helena/Tomasz on: 0 02/06/2025 07:32 AM CDT History and Physical Notes * [...] Interpretation: Mild Depression Intervention Depression Screening Findings: P ositve Follow-Up for Depression: [facility] health care management, Psychiatric follow-up Suicide Risk [...] of Total: (10 to 14) Mode rate [place]-Suicide Severity Rating Scale Suicide Risk (CSRS-screener) in [...]
--- OUTSIDE RECORDS SUMMARY | 2025-02-06 07:32 | XMS_ITS | Patient Health Record ---
Author Organization [facility] [employer] Address [address] [place] [address] Care Team Providers Care Forest Logistics Manager Name Role Phone Harish Cooley Unavailable [phone] Allergies No Known Allergies Reason For Referral [...] Risk Notes Problem Moderate recurrent major depression (70000497) Major depressive disorder, recurrent, moderate (F33.1) Active confirmed Problem Generalized anxiety disorder (98028716) Generalized anxiety disorder (F41.1) 4 Active confirmed Problem Insomnia disorder related to another mental disorder (20194639) 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 Active confirmed Problem Panic disorder (988850550) Panic disorder [episodic paroxysmal anxiety] without agoraphobia (F41.0) 4 Active confirmed Vital Signs Heart Rate 102 /min 02/02/2025 Height-cm 162.56 cm 02/02/2025 Blood pressure diastolic 80 mm Hg 02/02/2025 Weight-kg 107.05 kg 02/02/2025 Height 64.00 in 02/02/2025 Blood pressure systolic 120 mm Hg 02/02/2025 Weight 236 lbs 02/02/2025 BMI 40.5 kg/m2 02/02/2025 Encounters Encounter Location Date Provider Diagnosis [address] [facility] [address] [place] [address] 02/02/2025 Harish Cooley Encounter for screen ing for depression Z13.31 ; Encounter for screening for cardiovascular disorders Z13.6 ; Insomnia due to other mental disorder F51.05 ; Panic disorder [episodic paroxysmal anxiety] without agoraphobia F41.0 ; Generalized anxiety disorder F41.1 ; Other fatigue R53.83 and Major depressive disorder, recurrent, moderate F33.[address] [address] 03/21/2024 Harish Cooley Insomnia due to othe r mental disorder F51.05 ; Panic disorder [episodic paroxysmal anxiety] without agoraphobia F41.0 ; Generalized anxiety disorder F41.1 and Other fatigue R53.[address] [address] 10/27/2024 Harish Cooley Encounter for screen ing for depression Z13.31 ; Encounter for screening for cardiovascular disorders Z13.6 ; Insomnia due to other mental disorder F51.05 ; Panic disorder [episodic paroxysmal anxiety] without agoraphobia F41.0 ; Generalized anxiety disorder F41.1 and Other fatigue R53.83 [place] [id number] [facility] [address] [facility] [address] [place] [address] 03/03/2024 Harish Cooley [address] [address] 09/02/2024 Harish Cooley [address] [address] 10/30/2024 Harish Cooley Assessments Encounter Date Diagnosis [...] Sertraline 50 mg prescription [facility] [place] as requested by the patient. 10/27/2024 Encounter for screening for depression (ICD-10 - Z13.31) 02/02/2025 Encounter for screening for cardiovascular disorders (ICD-10 - Z13.6) 02/02/2025 Encounter for screening for depression (ICD-10 - Z13.31) 02/02/2025 Insomnia due to other mental disorder [...] Sertraline 50 mg prescription and [facility] [place] as requested by the patient. 10/27/2024 Encounter for screening for cardiovascular disorders (ICD-10 - Z13.6) 03/21/2024 Generalized anxiety disorder (ICD-10 - F41.1) [...] Sertraline 50 mg prescription and [facility] to [facility] [place] as requested by the patient. 10/27/2024 Insomnia [...] Sertraline 50 mg prescription and [facility] [place] as requested by the patient. 10/27/2024 Generalized anxiety disorder (ICD-10 - F41.1) 02/02/2025 Other fatigue (ICD-10 - R53.83) 10/27/2024 Other fatigue (ICD-10 - R53.83) 02/02/2025 Major depressive disorder, recurrent, moderate (ICD-10 - F33.1) 10/27/2024 Other 1. Generalized Anxiety Disorder: - [...] TIBC AND FERRITIN PANEL (5616) TSH+FREE T4 (65010) 02/02/2025 COMPREHENSIVE METABOLIC PANEL (63257) CBC (H/H, RBC, INDICES, WBC, PLT) (1759) 02/02/2025 HEMOGLOBIN A1c (496) 02/02/2025 VITAMIN B12/FOLATE, SERUM PANEL (7065) 0 02/02/2025 T3, FREE (54721) 02/02/2025 Next Appt Details Provider Name:Harish lau, 03/02/2025 09:15:00 AM, [address], [facility] [address], [place], [address], Insurance Providers Payer Name Payer Address Payer Phone Subscriber Number Group Number Insured Name Patient Relationship to Insured Coverage Start Date Coverage End Date [facility] [address] [place] [address] [id number] LOREE BOURNE Self - patient is the insured [facility] [place] Medicaid Replacement - Hmo [address] [place] [address] [id number] LOREE BOURNE Self - patient is the insured Medical (General) History Medical History History ICD Code Problems: Fatigue Generalized anxiety disorder 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
--- OUTSIDE RECORDS SUMMARY | 2025-02-06 07:32 | XMS_ITS | Clinical Summary ---
Author Organization [facility] Address [address] [place] [address] Care Team Providers Care Director Career Name Role Phone Dilshad Nassar MD Primary Care Provider [phone] Dilshad Nassar MD Unavailable [phone] Source Comments [facility],non-owned Affiliates and Associated Physician Practices is amultiple site organization consisting of ambulatory clinics and hospital sitesin [place], [place], [place] and [place]. This disclosure is being madepursuant to the Care Everywhere program and may not contain all information available regarding this patient. 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 Assessment & Plan (10/10/2021 5:32 PM WATER METER READER): Loree Bourne is a 15 yr old w/ hx of dysmenorrhea who presents to the adolescent clinic for follow up of her menorrhagia, and for a depo injection. She had intermittent for 2 days last month but the depo has still overall been controlling her painful periods and heavy bleeding. [facility] is significant for mother and grandmother [...] controlling her painful periods and heavy bleeding. [facility] is significant for mother and grandmother [...] depo Assessment & Plan (07/12/2020 4:58 PM WATER METER READER): Pain with periods, lower back and pelvic. Has pain starting two weeks before period, pain is the worst on days 1-3. Uses ibuprofen 800 mg four times daily on period. - Start depo today - Plan to start Vit D and iron pending labs results - check CBC, ferritin, vitamin D Family history of gynecological problem 07/12/20 Assessment & Plan (07/12/2020 5:00 PM WATER METER READER): Mother, multiple aunts (both maternal and paternal [...] Comments Diabetes; unknown type Father Other - Principal Research Economist Maternal Grandmother Diabetes; unknown type Mother Other - Principal Research Economist Mother PCOS/ endometri osis/ hysterectomy. Blood clots on high dose estrogen Other - Psychiatric Mother bipolar Thyroid Disease Mother tumors and r emval Other - Principal Research Economist Other Aunts on both s ides with PCOS/TIG WELDER Relation Name Status Comments Father Maternal Grandmother [...] on file Legal Sex Female 11:57 AM WATER METER READER Gender Identity Not on file Sexual Orientation Not on file Last Filed Vital Signs Vital Sign Reading Time Taken Comments Blood Pressure 130/58 08/16/2022 4:06 PM WATER METER READER Pulse 124 08/16/2022 4:06 PM WATER METER READER Temperature 36.2 C (97.2 F) 07/19/2020 2:50 PM WATER METER READER Respiratory Rate 20 06/06/2021 4:10 PM CDT Oxygen Saturation - - Inhaled Oxygen Concentration - - Weight 83.4 kg (183 lb 13.8 oz) 08/16/2022 4:06 PM WATER METER READER Height 164.5 cm (5' 4.76) 08/16/2022 4:06 PM CS T Body Mass Index 30.82 08/16/2022 4:06 PM WATER METER READER Plan of Treatment Health Maintenance Due Date [...] GC AMPLIFIED PROBE Routine 10/10/2021 5:02 PM WATER METER READER Menorrhagia with irregular cycle HIV-1 HIV-2 ANTIBODY + HIV P24 AG PANEL Routine 05/16/2021 3:58 PM CDT Routine screening for STI (sexually transmitted infection) from Last 3 Months or Most Recently Relevant to Health Maintenance Results * CHLAMYDIA + GC AMPLIFIED PROBE (STL) (10/10/2021 5:02 PM WATER METER READER) Chlamydia Amplified Probe Negative Negative 10/11/2021 11:55 PM WATER METER READER [facility] GC Amplified Probe Negative Negative 10/11/2021 11:55 PM WATER METER READER [facility] Microbiology URINE / Unknown Collection / Unknown 10/10/2021 5:02 PM WATER METER READER 10/10/2021 5:02 PM WATER METER READER Narrative [facility] - 10/11/2021 11:55 PM WATER METER READER Results based on detection/no detection of ribosomal RNA by amplified method. Marla Mayers MD LAB - MICROBIOLOGY ORDER ANN-MARIE Final Result Performing Organization Address City/[facility]/ZIP Co de Phone Number [facility] [address] [place] [address], [facility] [phone] * HIV-1 HIV-2 ANTIBODY + HIV P24 AG PANEL (05/16/2021 3:58 PM CDT) HIV Antigen/Antibod y 1 & 2 Non-reacti ve Non-react juan antonio 05/16/2021 6:14 PM CDT [facility] Comment:Neither HIV-1 p24 An tigen nor HIV-1/HIV-2 Antibodies are detected. Blood BLOOD SPECIMEN / Unknown Lab Venipuncture / Unknown 05/16/2021 3:58 PM CDT 05/16/2021 4:21 PM CDT Marla Mayers MD LAB - CHEMISTRY ORDERABL ES Final Result Performing Organization Address City/[facility]/ZIP Co de Phone Number [facility] [address] [place] [address], [place] [phone] from Last 3 Months or Most Recently Relevant to Health Maintenance Insurance [facility] Care Teams Director Career Relationship Specialty Start Date End Date Dilshad Nassar MD [address] [place] [address] PCP - General 07/13/20 Dilshad Nassar MD [address] [place] [address] Family Medicine 07/13/20
--- OUTSIDE RECORDS SUMMARY | 2025-02-06 07:32 | XMS_ITS ---
Author Organization [employer] [facility] Address [address] [facility] [address] [place] [address] Care Team Providers Care Plasterer Spray Gun Name Role Phone Cooley, Harish Unavailable [phone] REASON FOR VISIT r/s on 09/24/24 Social History Sex Assigned At : Social History Observation Description Sex Assigned At Female Encounters Encounter Location Date Provider Diagnosis [facility] [employer] [facility] [address] [facility] [address] [place] [address] 09/26/2024 Harish Cooley Plan Of Treatment Next Appt Details Provider Name:Harish lau, 03/02/2025 09:15:00 AM, [address], [facility] [address], [place], [address], Progress Notes * LOREE BOURNE RDOB:2005 (19 yo F)Acc No.[id number]:09/26/2024 Patient: Rachelle PRADIP LOREE Acuna Provider: SERENITY CARDENAS :2005 A ge:18 Y S ex:Female Date:09/26/2024 Address:[address] [place], [place] [id number] Subjective: * Chief Complaints: * 1 . R/s on 09/24/24. * Medical History: Objective: * Vitals: Assessment: Plan: * Treatment: * Billing Information: * Visit Code: * Procedure Codes: * Electronic signature of SERENITY Castillo on 02/06/2025 at 07:31 AM CDT Sign off status: Pending * Provider: SERENITY CARDENAS Date: 0 09/26/2024 Generated for Will Rubio/Tomasz on: 0 02/06/2025 07:31 AM CDT
== END 2025-02-06 07:30 | disposition home or self-care (01) ==
LOC: ANHAUDIO 07:29
PROVIDERS: Visit Provider Otolaryngology
DX: H93.13 Tinnitus, bilateral (principal); H93.8X1 Other specified disorders of right ear
CPT/HCPCS: 92557; 92567